=== PATIENT | male | born 1965 | race Caucasian/White ===

== ENCOUNTER 2017-05-25 09:56 | Emergency (ER) | payer OTHER | END 2017-05-25 12:49 | disposition home or self-care (01) | LOC: FTE 09:56 | DX: S49.91XA Unspecified injury of right shoulder and upper arm, initial encounter (principal); W18.39XA Other fall on same level, initial encounter; Y92.9 Unspecified place or not applicable | CPT/HCPCS: 73000; 73030-RT; 99283-25 ==

== ENCOUNTER → 2017-07-30 | Outpatient (CLI) | payer OTHER | END | disposition home or self-care (01) | LOC: HKI 10:09 | DX: M16.12 Unilateral primary osteoarthritis, left hip (principal); Z96.641 Presence of right artificial hip joint | CPT/HCPCS: 73502 ==